=== PATIENT | female | born 1950 | race Caucasian/White ===

== ENCOUNTER → 2020-04-22 | Outpatient (CLI) | payer MEDICARE, BC ==
--- NOTE | 2020-04-22 14:44 | REP ---
INDICATION: R92.8 LEFT STEROTATIC BX/LEFT BRST CALC. Marker clip placement views. COMPARISON: Comparison mammography 02/13/2020, 01/29/2020, October 01, 2018, and March 16, 2017. TECHNIQUE: Craniocaudal and mediolateral views of the left breast are obtained. FINDINGS: Craniocaudal and mediolateral views of the left breast demonstrate at the needle biopsy marker clip is in good position at the level of the micro calcific target at 12 o'clock position. There are fewer of these calcifications than were visible on 02/13/2020 indicating good sampling. No hematoma is seen. The calcifications noted more anteriorly and medially in the left breast are felt to have been present previously and therefore, these were not sampled IMPRESSION: Marker clip in good position post stereotactic needle biopsy for microcalcifications left breast. <Electronically signed by Iván Ambrose > 04/22/20 [id number]
--- NOTE | 2020-04-22 15:54 | REP ---
INDICATION: R92.8 LEFT STEROTATIC BX/LEFT BRST CALC. COMPARISON: Comparison mammography 02/13/2020 and 01/29/2020.. TECHNIQUE: Specimen radiograph, single view. FINDINGS: There are microcalcifications from the target grouping of microcalcifications in 1 of the removed specimens. IMPRESSION: Specimen radiography shows microcalcifications. <Electronically signed by Iván Ambrose > 04/22/20 [id number]
--- NOTE | 2020-04-22 16:15 | REP ---
INDICATION: R92.8 ABN MAMMO/LEFT breast CALC/STEREO BX. COMPARISON: None. TECHNIQUE: This procedure is performed by Ramya Christie [facility], under the direct supervision of Dr. Ambrose. The risks and benefits of the procedure were explained to the patient and informed consent was obtained both verbally and written. Directly prior to the start of the procedure, a formal timeout was done in the procedure room. The cranial caudal approach was utilized on the prone table. The left breast posterior microcalcification's were localized using mammographic guidance. The skin was prepped and draped in a sterile fashion. Fifteen ml of buffered lidocaine was used as a local anesthetic for the whole procedure. FINDINGS: A 10 gauge mammotome suction assisted biopsy device was inserted and advanced into the breast lesion and 6 core biopsy samples were obtained. A marker clip was placed at the biopsy site. Imaging of the specimens demonstrated microcalcifications within the specimen. The patient tolerated the procedure well and there were no immediate complications. After the appropriate amount of monitored convalescence the patient was discharged from the department. IMPRESSION: Stereotactic biopsy of the left breast posterior microcalcifications, with marker clip placement. <Electronically signed by Ramya Christie > 04/22/20 1550 <Electronically signed by Iván Ambrose > 04/22/20 1611
[2020-04-23 07:11] VITALS: BP 130/64
== END ==
LOC: M WHCPRO 13:15
PROVIDERS: ATTEND Family Medicine
DX: N60.32 Fibrosclerosis of left breast (principal)

== ENCOUNTER → 2020-07-05 | Outpatient (CLI) | payer MEDICARE, BC ==
[~2020-07-05] MED LIST: CVS10CAP8 PO; ECOT81TA5 PO; FLON27.5; HYDR-3490 PO; LIDOCAINE 1% MDV 20ML VIAL As Ordered ONE; LISI20TA33 PO; NAPR220C14 PO; [UNRECOGNIZED DRUG - CODE] PO; [UNRECOGNIZED DRUG - OTHER] PO
--- NOTE | 2020-07-05 12:15 | REP ---
INDICATION: PRE SCAN. Patient is referred for ultrasound-guided liver biopsy "abnormal findings on diagnostic imaging" . COMPARISON: Comparison sonography May 24, 2020.. TECHNIQUE: Limited right upper quadrant scanning evaluation for percutaneous access to the left lobe of the liver. FINDINGS: Preprocedure scanning shows no evidence of liver mass. Left lobe liver access was planned for percutaneous biopsy. IMPRESSION: Preprocedure scanning. No mass lesion seen. <Electronically signed by Iván Ambrose > 07/05/20 [id number]
[2020-07-05 12:43] VITALS: BP 132/62
--- NOTE | 2020-07-05 18:40 | REP ---
INDICATION: ABNORMAL FINDINGS ON DIAGNOSTIC IMAGING. COMPARISON: None. TECHNIQUE: The procedure was performed under the direct supervision of Dr. Ambrose. The risks and benefits of the procedure were explained to the patient and informed consent was obtained. The left lobe of the liver was localized using ultrasound guidance. The skin was prepped and draped in a sterile fashion. 1% lidocaine was used as a local anesthetic. Using ultrasound guidance a 17/18 gauge coaxial needle biopsy system was inserted and advanced into the liver. Five core biopsy samples were obtained and sent to the lab. The patient tolerated the procedure well and there were no immediate complications. After the appropriate amount to monitor convalescence the patient was discharged from the department. FINDINGS: None IMPRESSION: Ultrasound-guided liver biopsy. <Electronically signed by David Coyle > 07/05/20 [id number] <Electronically signed by Iván Ambrose > 07/05/20 0633
== END ==
LOC: M IRPRO 10:01
PROVIDERS: ATTEND Internal Medicine Gastroenterology
DX: R93.3 Abnormal findings on diagnostic imaging of other parts of digestive tract (principal); R94.5 Abnormal results of liver function studies; Z14.8 Genetic carrier of other disease

== ENCOUNTER 2020-12-20 15:10 | Outpatient (CLI) | payer MEDICARE, BC ==
[~2020-12-20] VITALS: Ht 160 cm; Wt 78.3 kg
[~2020-12-20 15:10] MED LIST changes: +CEPH500C PO; +COVI100V IM; -CVS10CAP8 PO; +ESTR62CR VG; +EZET10TA21 PO; -LIDOCAINE 1% MDV 20ML VIAL As Ordered ONE; +MELA10CA6 PO; +[UNRECOGNIZED DRUG - CODE] PO; -[UNRECOGNIZED DRUG - CODE] PO
[2020-12-20 15:20] VITALS: BP 150/67
[2020-12-20 16:03] VITALS: BP 129/61
[2020-12-20 16:19] VITALS: BP 112/62
== END 2020-12-20 16:20 | disposition home or self-care (01) ==
LOC: M INFU 15:10
PROVIDERS: ATTEND Internal Medicine Medical Oncology
DX: E83.110 Hereditary hemochromatosis (principal)
CPT/HCPCS: 99195; G0463

== ENCOUNTER → 2021-06-17 | Outpatient (REF) | payer MEDICARE, BC ==
[2021-06-17 10:23] LABS: MAGNESIUM LEVEL 2.4 MG/DL (1.8-2.4); THYROID STIMULATING HORMONE 1.74 uIU/ML (0.358-3.740)
== END ==
LOC: M LAB REF 09:18
PROVIDERS: ATTEND Family Medicine
DX: R00.2 Palpitations (principal); I10 Essential (primary) hypertension

== ENCOUNTER → 2021-06-24 | Outpatient (CLI) | payer MEDICARE, BC | LOC: M PLAIMG 12:24 | PROVIDERS: ATTEND Internal Medicine Medical Oncology | DX: E83.110 Hereditary hemochromatosis (principal); K76.0 Fatty (change of) liver, not elsewhere classified ==

== ENCOUNTER 2024-06-30 10:35 | Day surgery (SDC) | payer MEDICARE, BC ==
[~2024-06-30] VITALS: Ht 160 cm; Wt 72.1 kg
[~2024-06-30 10:35] MED LIST changes: +BISM262T3 PO; +LIDOCAINE 2% 100MG/5ML SDV (FOR ANES.) As Ordered ONE; +LISI40TA4; +LISI40TA4 PO; +RA N1TAB PO; +THERTAB52 PO; +VITA100093 PO; +VITAMIN B GUMMY PO; -[UNRECOGNIZED DRUG - CODE] PO; +propofoL 200 MG/20 ML VIAL As Ordered ONE
[2024-06-30 12:07] VITALS: TEMP 96.6
[2024-06-30 12:31] VITALS: BP 161/74; O2SAT 98
== END 2024-06-30 12:42 | disposition home or self-care (01) ==
LOC: M OPP 10:35
PROVIDERS: ATTEND Internal Medicine Gastroenterology
DX: Z12.11 Encounter for screening for malignant neoplasm of colon (principal); K63.5 Polyp of colon; K57.30 Diverticulosis of large intestine without perforation or abscess without bleeding; K64.0 First degree hemorrhoids; G47.30 Sleep apnea, unspecified; Z79.899 Other long term (current) drug therapy

== ENCOUNTER 2024-08-28 06:41 | Day surgery (SDC) | payer MEDICARE, BC ==
[~2024-08-28] VITALS: Ht 157.5 cm; Wt 74.4 kg
[~2024-08-28 06:41] MED LIST changes: -LIDOCAINE 2% 100MG/5ML SDV (FOR ANES.) As Ordered ONE; +MIDAZOLAM INJ 2MG/2ML VIAL As Ordered ONE; +PHENYLEPHRINE 10% OPHTH SOL 5ML OD PRN; +fentaNYL 100 MCG/2 ML INJECTION As Ordered ONE; -propofoL 200 MG/20 ML VIAL As Ordered ONE
[2024-08-28] MEDS: OFLOXACIN 0.3 % (OCUFLOX) OPTH SOL 5ML OD ONE (07:39)
[2024-08-28] MEDS: TROPICAMIDE 1% OPHTH SOLN 15ML OD SCH (07:39)
[2024-08-28] MEDS: CYCLOPENTOLATE 1% OPHTH SOLN 2ML BTL OD SCH (07:39)
[2024-08-28] MEDS: PHENYLEPHRINE 2.5% OPHTH SOL 2ML OD SCH (07:39)
[2024-08-28] MEDS: LIDOCAINE 3.5 % 1ML OPHTH TOPICAL GEL OU ONE (07:39)
[2024-08-28] MEDS: LIDOCAINE 1% SDV 5ML VIAL As Ordered ONE (08:30)
[2024-08-28] MEDS: BSS IRRIG/VANCO(10MG)/TOBRA(5MG)/EPINEPH(1:1000-0.5CC)500ML BAG-ORONLY As Ordered ONE (08:30)
[2024-08-28] MEDS: CEFUROXIME 1MG/0.1ML INTRACAMERAL INJ As Ordered ONE (08:30)
[2024-08-28 08:39] VITALS: BP 149/66; TEMP 97.5; O2SAT 94
== END 2024-08-28 08:52 | disposition home or self-care (01) ==
LOC: M SDC 06:41
PROVIDERS: ATTEND Ophthalmology
DX: H25.11 Age-related nuclear cataract, right eye (principal); I10 Essential (primary) hypertension; E78.5 Hyperlipidemia, unspecified; K76.0 Fatty (change of) liver, not elsewhere classified; G47.33 Obstructive sleep apnea (adult) (pediatric); Z79.899 Other long term (current) drug therapy
CPT/HCPCS: 66984; J0697; J2250; J3010; V2632

== ENCOUNTER 2024-09-04 08:54 | Day surgery (SDC) | payer MEDICARE, BC ==
[~2024-09-04] VITALS: Ht 157.5 cm; Wt 74.6 kg
[~2024-09-04 08:54] MED LIST changes: -PHENYLEPHRINE 10% OPHTH SOL 5ML OD PRN; +PHENYLEPHRINE 10% OPHTH SOL 5ML OS PRN
[2024-09-04] MEDS: LIDOCAINE 3.5 % 1ML OPHTH TOPICAL GEL OU ONE (09:41)
[2024-09-04] MEDS: OFLOXACIN 0.3 % (OCUFLOX) OPTH SOL 5ML OS ONE (09:41)
[2024-09-04] MEDS: CYCLOPENTOLATE 1% OPHTH SOLN 2ML BTL OS SCH (09:41)
[2024-09-04] MEDS: TROPICAMIDE 1% OPHTH SOLN 15ML OS SCH (09:42)
[2024-09-04] MEDS: PHENYLEPHRINE 2.5% OPHTH SOL 2ML OS SCH (09:42)
[2024-09-04] MEDS ORDERED: ONDANSETRON 4MG 2ML VIAL As Ordered ONE (10:37)
[2024-09-04] MEDS: LIDOCAINE 1% SDV 5ML VIAL As Ordered ONE (10:39)
[2024-09-04] MEDS: CEFUROXIME 1MG/0.1ML INTRACAMERAL INJ As Ordered ONE (10:39)
[2024-09-04] MEDS: BSS IRRIG/VANCO(10MG)/TOBRA(5MG)/EPINEPH(1:1000-0.5CC)500ML BAG-ORONLY As Ordered ONE (10:40)
[2024-09-04 10:54] VITALS: BP 149/59; TEMP 98; O2SAT 97
== END 2024-09-04 11:07 | disposition home or self-care (01) ==
LOC: M SDC 08:54
PROVIDERS: ATTEND Ophthalmology
DX: H25.12 Age-related nuclear cataract, left eye (principal); I10 Essential (primary) hypertension; E78.00 Pure hypercholesterolemia, unspecified; K76.0 Fatty (change of) liver, not elsewhere classified; G47.30 Sleep apnea, unspecified; Z79.899 Other long term (current) drug therapy; Z90.49 Acquired absence of other specified parts of digestive tract; Z90.722 Acquired absence of ovaries, bilateral
CPT/HCPCS: 66984; J0697; J2250; J2405; J3010; V2632